=== PATIENT | female | born 1980 | race Caucasian/White ===

== ENCOUNTER 2018-03-09 11:48 | Outpatient (CLI) | payer OTHER ==
[2018-03-09 12:34] LABS: BASOPHILS % (AUTO) 0.3 % (0.0-2.0); EOSINOPHILS % (AUTO) 0.4 % (0.0-4.0); HEMATOCRIT 35.7 % (36-48); HEMOGLOBIN 11.9 g/dL (12.0-16.0); LYMPHOCYTES # (AUTO) 1.5 K/uL (1.0-5.5); LYMPHOCYTES % (AUTO) 16.4 % (20.5-51.5); MEAN CORPUSCULAR HEMOGLOBIN 31 pg (27-31); MEAN CORPUSCULAR HGB CONC 33 % (32-36); MEAN CORPUSCULAR VOLUME 93 fL (79.0-98.0); MONOCYTES # (AUTO) 0.4 K/uL (0.0-1.0); NEUTROPHILS % (AUTO) 77.9 % (40.0-70.0); PLATELET COUNT (AUTO) 379 K/uL (130-430); RED BLOOD CELL COUNT(AUTO) 3.86 MIL/uL (4.2-6.2); RED CELL DISTRIBUTION WIDTH 12.3 % (9.0-15.0); WHITE BLOOD COUNT (AUTO) 8.9 K/uL (4.8-10.8)
[2018-03-11 04:16] LABS: RUBELLA AB, IgM <20.0 AU/mL (0.0-19.9)
[2018-03-11 05:19] LABS: HEPATITIS Be AG Negative (Negative)
[2018-03-11 11:41] LABS: RUBELLA AB, IgG <0.90 index (Immune >0.99)
== END 2018-03-09 20:53 | disposition home or self-care (01) ==
LOC: SLB 11:48
PROVIDERS: ATTEND Specialist
DX: O09.529 Supervision of elderly multigravida, unspecified trimester (principal); Z3A.00 Weeks of gestation of pregnancy not specified
CPT/HCPCS: 36415; 85025; 86592; 86762; 86886; 86900; 86901; 87350

== ENCOUNTER 2018-05-26 13:33 | Observation (INO) | payer OTHER ==
[~2018-05-26] VITALS: Ht 162.6 cm; Wt 93.0 kg
[2018-05-26 14:26] LABS: BILIRUBIN,URINE NEGATIVE (NEGATIVE); CLARITY/URINE HAZY (CLEAR); COLOR,URINE YELLOW (YELLOW); GLUCOSE,URINE NEGATIVE (NEGATIVE); KETONES,URINE TRACE (NEGATIVE); LEUKOCYTE ESTERASE ,URINE NEGATIVE (NEGATIVE); NITRITE, URINE NEGATIVE (NEGATIVE); PROTEIN URINE NEGATIVE (NEGATIVE); UROBILINOGEN,URINE 0.2 (0.2-1.0)
[2018-05-26] MEDS ORDERED: MEPERIDINE HCL/PF 100 MG/ML AMP ONE (14:44)
[2018-05-26] MEDS ORDERED: PROMETHAZINE HCL 25 MG/ML AMP ONE (14:44)
[2018-05-26] MEDS ORDERED: MEPERIDINE HCL/PF 50 MG/ML AMP IM ONE (14:45)
[2018-05-26] MEDS ORDERED: PROMETHAZINE HCL 25 MG/ML AMP IM ONE (14:45)
[2018-05-26 14:55] LABS: BLOOD, URINE TRACE (NEGATIVE)
[2018-05-26 15:01] LABS: BACTERIA,URINE RARE /HPF (None Seen); MUCUS,URINE None Seen /LPF (None Seen)
== END 2018-05-26 17:15 | disposition home or self-care (01) ==
LOC: SPU 13:33
PROVIDERS: ADMIT Specialist; ATTEND Specialist
DX: O99.89 Other specified diseases and conditions complicating pregnancy, childbirth and the puerperium (principal); M54.5 Low back pain; Z3A.26 26 weeks gestation of pregnancy
CPT/HCPCS: 76770; 81000; 81002; 87086; 96372; G0378; J2175; J2550